=== PATIENT | female | born 1975 ===

== ENCOUNTER → 2022-04-01 | Outpatient (CLI) | payer OTHER ==
[~2022-04-01] MED LIST: CATAPRES0.2 MG PO; COREG 25MG25 MG/TAB PO; NORCO 325 MG-51 TAB PO; NORVASC 10MG10 MG PO; PROTONIX 40MG T40 MG PO; PYRIDIUM 100MG100 MG PO
== END ==
LOC: COL.VAS 09:33 → COL.RAD 10:30
DX: E21.3 Hyperparathyroidism, unspecified (principal); R42 Dizziness and giddiness
CPT/HCPCS: A9500

== ENCOUNTER 2022-06-06 03:24 | Emergency (ER) | payer OTHER ==
[~2022-06-06] VITALS: Ht 160 cm; Wt 104.5 kg
[2022-06-06 03:42] LABS: BASO # 0.1 K/mm3 (0.0-0.2); BASO % 0.7 % (0.0-2.0); EOS # 0.1 K/mm3 (0.0-0.7); EOS % 1.8 % (0.0-4.0); GRAN # 4.6 K/mm3 (1.4-6.5); GRAN % 59.6 % (42.2-75.2); HEMATOCRIT 40.7 % (37.0-47.0); LYMPH # 2.1 K/mm3 (1.2-3.4); LYMPH % 27.4 % (20.0-51.0); MEAN CELL VOLUME 84 fl (80.0-100.0); MEAN CORPUSCULAR HEMOGLOBIN 27 pg (27-31); MEAN CORPUSCULAR HGB CONC 32 g/dl (33.0-37.0); MONO # 0.8 K/mm3 (0.1-0.6); MONO % 10.4 % (1.7-9.3); PLATELET COUNT 256 K/mm3 (130-400); RED BLOOD COUNT 4.82 M/mm3 (4.10-5.30); REDCELL DISTRIBUTION WIDTH-CV 13.1 % (11.5-14.5)
[2022-06-06 03:49] LABS: INR 1.1 (0.8-3.0); PROTHROMBIN TIME 12.5 SECONDS (9.7-12.8)
[2022-06-06 04:03] LABS: ALBUMIN 3.6 gm/dL (3.5-5.0); BILIRUBIN,TOTAL 0.4 mg/dL (0.2-1.2); CALCIUM 9.2 mg/dL (8.4-10.2); CREATININE, serum 0.92 mg/dL (0.57-1.11); POTASSIUM 3.6 mmol/L (3.5-4.5); TOTAL PROTEIN 7.2 gm/dL (6.2-8.1)
[2022-06-06 05:24] VITALS: TEMP 98.1
[2022-06-06 05:39] VITALS: BP 150/88; PULSE 67
== END 2022-06-06 05:50 | disposition short-term general hospital (02) ==
LOC: COL.ER 03:24
PROVIDERS: Personal Emergency Response Attendant
DX: I63.9 Cerebral infarction, unspecified (principal); Z28.311 Partially vaccinated for COVID-19
CPT/HCPCS: J2405; J3101; J7030